=== PATIENT | female | born 1980 | race Caucasian/White ===

== ENCOUNTER 2023-10-23 09:18 | Outpatient (CLI) | payer OTHER, SELFPAY ==
--- NOTE | ~2023-10-23 | MR_ITS ---
EXAMINATION: MR brain/brain stem wo/w con DATE: 10/23/2023 10:21 INDICATION: Concussion. Loss of consciousness. TECHNIQUE: Magnetic resonance imaging (MRI) of the brain and brainstem was performed without and with 20 mL MultiHance intravenous contrast. COMPARISON: None. FINDINGS: There is no intracranial hemorrhage, acute infarction, or abnormal intracranial mass lesion . The ventricles are normal in size. There is mucosal thickening in the paranasal sinuses. The orbits are normal. The mastoid air cells are normal. IMPRESSION: 1. Normal brain. Reviewed, dictated and finalized at location E. [employer]INEER IMPRESSION: 1. Normal brain.
== END 2023-10-23 09:19 | disposition home or self-care (01) ==
PROVIDERS: PCP Family Medicine; Visit Provider Family Medicine
DX: G43.909 Migraine, unspecified, not intractable, without status migrainosus (principal); S06.0XAA Concussion with loss of consciousness status unknown, initial encounter
CPT/HCPCS: 70553; A9577

== ENCOUNTER 2023-12-02 08:00 | Outpatient (RCR) | payer OTHER, SELFPAY ==
--- NOTE | 2023-11-10 10:09 | OPREHPOC ---
Outpatient Therapy Plan of Care This is a Multidisciplinary Plan of Care that may contain components documented by all disciplines (PT, OT, and ST.) PT Problem 1 PT Problem #1 Knowledge Deficit PT Goal 1 Goal Pt will be independent in HEP Pt will verbalize understanding of diagnosis and prognosis Target Visit 8 PT Problem 2 PT Problem #2 Pain PT Goal 1 Goal Pt will report greatest pain level at 3/10 or less to improve ADLs and activities Target Visit 8 PT Goal 2 Goal Pt will report resolution of pain to return to PLOF Target Visit 16 PT Problem 3 PT Problem #3 Impaired Range of Motion PT Goal 1 Goal Pt will demo cervical active ROM within 75% of normal with minimal discomfort Target Visit 8 PT Goal 2 Goal Pt will demo 90% cervical active ROM with minimal discomfort Target Visit 16 PT Problem 4 PT Problem #4 Impaired Flexibility PT Goal 1 Goal Pt will demo normalized muscle tonicity at rest in the upper trapezius muscles Target Visit 16
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
--- NOTE | 2023-11-30 16:04 | PCPTNOTE ---
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
--- NOTE | 2023-12-08 17:16 | PCPTNOTE ---
Patient called & cancelled scheduled appointment this date due to being called into work
--- NOTE | 2023-12-10 08:28 | PCPTNOTE ---
Patient did not show up for scheduled appointment this date.
--- NOTE | 2023-12-15 09:35 | PCPTNOTE ---
Patient did not show up for scheduled appointment this date.
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
== END 2024-01-10 10:05 | disposition home or self-care (01) ==
LOC: ANHHIPT 08:00
PROVIDERS: PCP Family Medicine; Visit Provider Family Medicine
DX: M54.2 Cervicalgia (principal)
CPT/HCPCS: 97014; 97110; 97112; 97140; 97162; G0283